=== PATIENT | male | born 1980 | race Caucasian/White ===

== ENCOUNTER 2017-03-17 14:00 | Emergency (ER) | payer OTHER ==
[~2017-03-17] VITALS: Ht 172.7 cm; Wt 70.8 kg
[2017-03-17 14:00] VITALS: BP 131/87
[2017-03-17] MEDS ORDERED: PREDNISONE 10 M10 MG PO (14:27)
[2017-03-17] MEDS ORDERED: KEFLEX500 MG PO (14:27)
== END 2017-03-17 14:27 | disposition home or self-care (01) ==
LOC: ER 14:00
DX: R21 Rash and other nonspecific skin eruption (principal)